=== PATIENT | male | born 1950 | race Caucasian/White ===

== ENCOUNTER 2020-09-17 06:34 | Day surgery (SDC) | payer OTHER, SELFPAY ==
[~2020-09-17] VITALS: Ht 170.2 cm; Wt 68.0 kg
[2020-09-17] MEDS ORDERED: LIDOCAINE 2% 100 MG/5 ML UJET TP ONE ×2 (09:35→10:10)
[2020-09-17] MEDS ORDERED: fentaNYL citrate 0.05 MG/ML VIAL ONE (09:35)
[2020-09-17] MEDS ORDERED: fentaNYL citrate 0.05 MG/ML VIAL IVP ONE (10:10)
== END 2020-09-17 10:30 | disposition home or self-care (01) ==
LOC: MOR 06:34 → MMU 06:35 → MOR 10:30
PROVIDERS: ATTEND Internal Medicine Gastroenterology
DX: Z12.11 Encounter for screening for malignant neoplasm of colon (principal); D12.5 Benign neoplasm of sigmoid colon; K64.8 Other hemorrhoids; F17.210 Nicotine dependence, cigarettes, uncomplicated; Z79.899 Other long term (current) drug therapy
CPT/HCPCS: 45385; 87426; J3010